=== PATIENT | male | born 1980 | race Caucasian/White ===

== ENCOUNTER 2021-06-07 09:57 | Emergency (ER) | payer MEDICAID, OTHER ==
[2021-06-07] MEDS ORDERED: Ondansetron 4 MG/2 ML SDV IVPUSH ONE (10:06)
[2021-06-07] MEDS ORDERED: Sodium Chloride 0.9% 1,000 ML IV ONE (10:06)
[2021-06-07] MEDS ORDERED: LORazepam 2 MG/ML SDV IVPUSH ONE ×3 (10:19→11:41)
[2021-06-07 11:01] LABS: BLOOD UREA NITROGEN,BUN 11 mg/dL (7.0-18.0); CARBON DIOXIDE,CO2 28.7 mmol/L (21.0-32.0); CHLORIDE,CL 102 mmol/L (98-107); GLUCOSE RANDOM 111 mg/dL (74-106); LIPASE 112 U/L (73-393); POTASSIUM,K 3.5 mmol/L (3.5-5.1); SODIUM,NA 141 mmol/L (136-148)
[2021-06-07] MEDS ORDERED: cloNIDine 0.1 MG Tab PO ONE (12:19)
--- NOTE | 2021-06-07 14:03 | PCM.EKG ---
#1 Interpretation EKG Interpretation Comments: EKG date June 07, 2021 at 11:06 AM. EKG: As interpreted by ER physician: Daaina: Nonspecific ST-T wave abnormalities Normal axis No evidence of ST elevation KS Normal sinus rhythm heart rate of 71
--- NOTE | 2021-06-07 14:29 | EDM.PDOC ---
ED HPI GENERAL MEDICAL PROBLEM - General Chief Complaint: Gastrointestinal Problem Stated Complaint: CANT HOLD ANYTHING DOWN FOR 1 WEEK Time Seen by Provider: 06/07/21 10:10 Source of Information: Reports: Patient History Limitations: Reports: No Limitations - History of Present Illness INITIAL COMMENTS - FREE TEXT/NARRATIVE: HISTORY AND PHYSICAL: History of present illness: Patient is a 40-year-old male who presents emergency room today with concern of episodes of vomiting over the past 5 to 7 days. Patient states he is a daily alcohol user and states that he typically will drink a entire large case of beer to himself daily. Patient states that he lives in [facility] and is up in [place] for a short visit. Patient states that he had stopped drinking in order to drive safely to [place] and states that [address], he began getting shaky and vomiting. Patient states he has continued to not drink but has continued to vomit daily since getting to [place]. Patient states that typically he does not stop drinking but is stopping for the next several weeks as he is here with his family. Patient states that he also has a history of hypertension and his blood pressure is always significantly elevated. Patient states he is on blood pressure medications and states that he does take these daily. Patient denies any other resuscitative symptoms. Patient denies fever, chills, chest pain, shortness of breath, or cough. Denies headache, neck stiff ness, change in vision, syncope, or near syncope. Denies abdominal pain, diarrhea, constipation, or dysuria. Has not noted any blood in urine or stool. Patient has been eating and drinking appropriately. Review of systems: As per history of present illness and below otherwise all systems reviewed and negative. Past medical history: As per history of present illness and as reviewed below otherwise noncontributory. Surgical history: As per history of present illness and as reviewed below otherwise noncontributory. Social history: See social history for further information Family history: As per history of present illness and as reviewed below otherwise noncontributory. Physical exam: General: Patient is alert, oriented, and in no acute distress. Patient sitting comfortably on exam table. Patient is hypertensive 186/108, otherwise vitally stable and reviewed by me. Patient is not actively vomiting on exam. HEENT: Atraumatic, normocephalic, pupils equal and reactive bilaterally, negative for conjunctival pallor or scleral icterus, mucous membranes moist, TMs normal bilaterally, throat clear, neck supple, nontender, trachea midline. No drooling or trismus noted. No meningeal signs. No hot potato voice noted. Lungs: Clear to auscultation, breath sounds equal bilaterally, chest nontender. Heart: S1S2, regular rate and rhythm without overt murmur Abdomen: Soft, nondistended, nontender. Negative for masses or hepatosplenomegaly. Negative for costovertebral tenderness. Pelvis: Stable nontender. Genitourinary: Deferred. Rectal: Deferred. Skin: Intact, warm, dry. No lesions or rashes noted. Extremities: Number noted with arm extended on exam. Otherwise, atraumatic, negative for cords or calf pain. Neurovascular unremarkable. Neuro: Awake, alert, oriented. Cranial nerves II through XII unremarkable. Cerebellum unremarkable. Motor and sensory unremarkable throughout. Exam nonfocal. Notes: Patient is a 40-year-old male, with a history of daily alcohol use, who presents emergency room today secondary to vomiting and shaking with possible alcohol withdrawal. Upon arrival to the ED, patient is hypertensive 186/108 otherwise is vitally stable and well-appearing on exam. Patient does have a tremor noticeable with arm extended on exam. Patient does not have any abdominal tenderness on exam. CIWA score upon arrival to the ED 10. Will provide 1LNS bolus, Zofran, Ativan 2mg, and reassess patient while awaiting diagnostic completion. See Dr. Ahmadi dictation for specific EKG interpretation. Otherwise, NSR without STEMI. CBC mild derangements are unremarkable. CMP shows mildly elevated alk phos of 123 in isolation, otherwise CMP is unremarkable. Lipase within normal limits. Urinalysis of clear. Alcohol is negative. After 2 mg of Ativan, patient does have slight improvement of his tremor but still remains hypertensive which is now increased to 254/148. Patient's heart rate remains within normal limits. Will provide an additional 2 of Ativan and reassess patient. After another 2 mg of Ativan, patient's tremor has completely resolved and patient is now comfortably sleeping at bedside but arousable and able to communicate appropriately. Patient's blood pressure is now 195/91. Patient does state he has significant hypertension and believes it to run around 170/100 but has not monitored it in sometime. Will provide 1 dose of Clonidine today in ED and reassess patient. Patient has had to contact consecutive CIWA scores that are 2 hours apart with less than 10 with resolution of tremor. Patient will be discharged with a tapered dose of lithium as he is going to continue to not drink for the next several weeks. Discussed close monitoring of his blood pressure at home and keeping a journal of his blood pressure readings twice daily and to establish an appointment with a primary care provider for blood pressure reassessment. Strict return precautions thoroughly discussed with patient. Signs and symptoms that were prompt return to the ED thoroughly discussed with patient. Voices understanding and is agreeable to plan of care. Denies any further questions or concerns at this time. Diagnostics: CBC, CMP, UA, lipase, EKG Therapeutics: Ativan, Zofran, normal saline, clonidine Prescription: Librium Impression: Alcohol withdrawal, mild Hypertension Plan: 1. Take medication as prescribed. I want you to closely monitor your blood pressure as discussed and keep a log of your blood pressure daily. 2. Follow-up with your primary care provider as discussed. Return to the ED as needed and as discussed. Definitive disposition and diagnosis as appropriate pending reevaluation and review of above. - Related Data Allergies Allergy/AdvReac Type Severity Reaction Status Date / Time No Known Allergies Allergy Verified 06/07/21 10:11 Past Medical History HEENT History: Reports: None Cardiovascular History: Reports: Heart Failure, Hypertension Respiratory History: Reports: None Gastrointestinal History: Reports: Irritable Bowel Syndrome Genitourinary History: Reports: Renal Calculus Musculoskeletal History: Reports: Arthritis Neurological History: Reports: None Psychiatric History: Reports: Depression Endocrine/Metabolic History: Reports: None Hematologic History: Reports: None Immunologic History: Reports: None Oncologic (Cancer) History: Reports: None Dermatologic History: Reports: None - Infectious Disease History Infectious Disease History: Reports: None - Past Surgical History Head Surgeries/Procedures: Reports: None HEENT Surgical History: Reports: None Cardiovascular Surgical History: Reports: None Respiratory Surgical History: Reports: None GI Surgical History: Reports: Cholecystectomy Male Surgical History: Reports: None Endocrine Surgical History: Reports: None Neurological Surgical History: Reports: None Musculoskeletal Surgical History: Reports: Amputation Oncologic Surgical History: Reports: None Dermatological Surgical History: Reports: None Social & Family History - Family History Family Medical History: No Pertinent Family History - Tobacco Use Tobacco Use Status *Q: Current Every Day Tobacco User Years of Tobacco use: 29 Packs/Tins Daily: 1 - Caffeine Use Caffeine Use: Reports: None - Alcohol Use Number of Drinks Per Day: 18 - Recreational Drug Use Recreational Drug Use: No ED ROS GENERAL - Review of Systems Review Of Systems: Comprehensive ROS is negative, except as noted in HPI. ED EXAM, GENERAL - Physical Exam Exam: See Below (see dictation) Course - Vital Signs Last Recorded V/S: Last Vital Signs Temp 97.8 F 06/07/21 10:09 Pulse 78 06/07/21 14:43 Resp 17 06/07/21 14:43 BP 135/75 06/07/21 14:43 Pulse Ox 98 06/07/21 14:43 - Orders/Labs/Meds Labs: Laboratory Tests 06/07/21 06/07/21 06/07/21 Range/Units 10:22 10:22 13:35 WBC 9.52 (4.0-11.0) K/uL RBC 5.45 (4.50-5.90) M/uL Hgb 15.3 (13.0-17.0) g/dL Hct 46.0 (38.0-50.0) % MCV 84.4 (80.0-98.0) fL MCH 28.1 (27.0-32.0) pg MCHC 33.3 (31.0-37.0) g/dL RDW Std Deviation 46.7 (28.0-62.0) fl RDW Coeff of Alysha 15 (11.0-15.0) % Plt Count 390 (150-400) K/uL MPV 10.40 (7.40-12.00) fL Neut % (Auto) 73.1 (48.0-80.0) % Lymph % (Auto) 17.8 (16.0-40.0) % Isabella % (Auto) 8.6 (0.0-15.0) % Eos % (Auto) 0.4 (0.0-7.0) % Baso % (Auto) 0.1 (0.0-1.5) % Neut # (Auto) 7.0 H (1.4-5.7) K/uL Lymph # (Auto) 1.7 (0.6-2.4) K/uL Isabella # (Auto) 0.8 (0.0-0.8) K/uL Eos # (Auto) 0.0 (0.0-0.7) K/uL Baso # (Auto) 0.0 (0.0-0.1) K/uL Nucleated RBC % 0.0 /100WBC Nucleated RBCs # 0 K/uL Sodium 141 (136-148) mmol/L Potassium 3.5 (3.5-5.1) mmol/L Chloride 102 (98-107) mmol/L Carbon Dioxide 28.7 (21.0-32.0) mmol/L BUN 11 (7.0-18.0) mg/dL Creatinine 1.0 (0.8-1.3) mg/dL Est Cr Clr Drug Dosing 95.95 mL/min Estimated GFR (MDRD) > 60.0 ml/min Glucose 111 H (74-106) mg/dL Calcium 9.1 (8.5-10.1) mg/dL Total Bilirubin 0.6 (0.2-1.0) mg/dL AST 17 (15-37) IU/L ALT 52 (14-63) IU/L Alkaline Phosphatase 123 H (46-116) U/L Total Protein 7.5 (6.4-8.2) g/dL Albumin 4.2 (3.4-5.0) g/dL Globulin 3.3 (2.6-4.0) g/dL Albumin/Globulin Ratio 1.3 (0.9-1.6) Lipase 112 (73-393) U/L Urine Color YELLOW Urine Appearance CLOUDY Urine pH 7.0 (5.0-8.0) Ur Specific [place] 1.015 (1.001-1.035) Urine Protein NEGATIVE (NEGATIVE) mg/dL Urine Glucose (UA) NEGATIVE (NEGATIVE) mg/dL Urine Ketones NEGATIVE (NEGATIVE) mg/dL Urine Occult Blood NEGATIVE (NEGATIVE) Urine Nitrite NEGATIVE (NEGATIVE) Urine Bilirubin NEGATIVE (NEGATIVE) Urine Urobilinogen 1.0 (<2.0) EU/dL Ur Leukocyte Esterase NEGATIVE (NEGATIVE) Ethyl Alcohol <3 mg/dL Meds: Medications Discontinued Medications Generic Name Dose Route Start Last Admin Trade Name Freq PRN Reason Stop Dose Admin Clonidine HCl 0.1 mg 06/07/21 12:19 06/07/21 12:25 Clonidine 0.1 Mg Tab PO 06/07/21 12:20 0.1 mg ONETIME ONE Administration Sodium Chloride 1,000 mls @ 999 mls/hr 06/07/21 10:06 06/07/21 10:26 Normal Saline IV 06/07/21 11:06 999 mls/hr BOLUS ONE Administration Lorazepam 2 mg 06/07/21 10:19 06/07/21 10:29 Lorazepam 2 Mg/Ml Sdv IVPUSH 06/07/21 10:20 2 mg ONETIME ONE Administration Lorazepam 2 mg 06/07/21 10:50 06/07/21 11:05 Lorazepam 2 Mg/Ml Sdv IVPUSH 06/07/21 10:51 2 mg ONETIME ONE Administration Lorazepam 1 mg 06/07/21 11:41 06/07/21 14:18 Lorazepam 2 Mg/Ml Sdv IVPUSH 06/07/21 11:42 Not Given ONETIME ONE Ondansetron HCl 4 mg 06/07/21 10:06 06/07/21 10:26 Ondansetron 4 Mg/2 Ml Sdv IVPUSH 06/07/21 10:07 4 mg ONETIME ONE Administration Departure - Departure Time of Disposition: 14:27 Disposition: Home, Self-Care 01 Clinical Impression: Alcohol withdrawal Qualifiers: Complication of substance-induced condition: with unspecified complication Qualified Code(s): F10.239 - Alcohol dependence with withdrawal, unspecified Hypertension Qualifiers: Hypertension type: unspecified Qualified Code(s): I10 - Essential (primary) hypertension - Discharge Information Instructions: Hypertension, Adult, [id number], Alcohol Withdrawal Syndrome, [id number] Referrals: PCP,None [Primary Care Provider] - Forms: ED Department Discharge Additional Instructions: The following information is given to patients seen in the emergency department who are being discharged to home. This information is to outline your options for follow-up care. We provide all patients seen in our emergency department with a follow-up referral. The need for follow-up, as well as the timing and circumstances, are variable depending upon the specifics of your emergency department visit. If you don't have a primary care physician on staff, we will provide you with a referral. We always advise you to contact your personal physician following an emergency department visit to inform them of the circumstance of the visit and for follow-up with them and/or the need for any referrals to a consulting specialist. The emergency department will also refer you to a specialist when appropriate. This referral assures that you have the opportunity for follow-up care with a specialist. All of these measure are taken in an effort to provide you with optimal care, which includes your follow-up. Under all circumstances we always encourage you to contact your private physician who remains a resource for coordinating your care. When calling for follow-up care, please make the office aware that this follow-up is from your recent emergency room visit. If for any reason you are refused follow-up, please contact the [facility] Emergency Department at and asked to speak to the emergency department charge nurse. [facility] [address] [place] [id number] [facility] [address] [place] [id number] 1. Take medication as prescribed. I want you to closely monitor your blood pressure as discussed and keep a log of your blood pressure daily. 2. Follow-up with your primary care provider as discussed. Return to the ED as needed and as discussed. Sepsis Event Note (ED) - Focused Exam Vital Signs: Vital Signs Temp Pulse Resp BP BP Pulse Ox 06/07/21 14:43 78 17 135/75 98 06/07/21 13:54 91 17 195/91 H 97 06/07/21 12:25 212/116 H 06/07/21 11:05 71 17 187/109 H 97 06/07/21 10:56 67 18 254/148 H 98 06/07/21 10:09 97.8 F 83 18 186/108 H 96
== END 2021-06-07 14:44 | disposition home or self-care (01) ==
LOC: MW.ED 09:57
DX: F10.239 Alcohol dependence with withdrawal, unspecified (principal); I11.0 Hypertensive heart disease with heart failure; Z72.0 Tobacco use; Y90.0 Blood alcohol level of less than 20 mg/100 ml
CPT/HCPCS: 36415; 80053; 80307; 81003; 83690; 85025; 93005; 96374; 96375; 96376; 99283; A9270; J2060; J2405; J7030

== ENCOUNTER 2021-06-10 11:50 | Emergency (ER) | payer MEDICAID, OTHER ==
[2021-06-10] MEDS ORDERED: Ondansetron 4 MG/2 ML SDV IVPUSH ONE (12:19)
[2021-06-10] MEDS ORDERED: Sodium Chloride 0.9% 1,000 ML IV ONE (12:19)
[2021-06-10] MEDS ORDERED: HYDROmorphone 1 MG/ML Syringe IVPUSH ONE (12:20)
[2021-06-10] MEDS ORDERED: Famotidine 20 MG/2 ML SDV IVPUSH ONE (12:21)
--- NOTE | 2021-06-10 12:24 | EDM.PDOC ---
ED HPI GENERAL MEDICAL PROBLEM - General Chief Complaint: Gastrointestinal Problem Stated Complaint: STOMACH PAIN, VOMMITTING Time Seen by Provider: 06/10/21 12:03 Source of Information: Reports: Patient History Limitations: Reports: No Limitations - History of Present Illness INITIAL COMMENTS - FREE TEXT/NARRATIVE: HISTORY AND PHYSICAL: History of present illness: Patient is a 40-year-old male who presents to the emergency room with complaints of nausea, vomiting, and upper abdominal pain. Patient was seen on 06/07/2021 for alcohol withdrawal symptoms (nausea, vomiting, tremors). Patient states he was a daily drinker, drinking a case of beer up until his arrival to [place] this week. He has generalized upper abdominal pain and tenderness to palpation. Not aggravated by food. States he has not been able to keep his hypertension medication down nor any liquid/food. Patient denies any fever, chills, headache, change in vision, syncope or near syncope. Denies any chest pain, back pain, shortness of breath or cough. Denies any diarrhea, constipation or dysuria. Has not noted any blood in urine or stool. Patient has been eating and drinking appropriately. Review of systems: As per history of present illness and below otherwise all systems reviewed and negative. Past medical history: As per history of present illness and as reviewed below otherwise no ncontributory. Surgical history: As per history of present illness and as reviewed below otherwise noncontributory. Social history: See social history for further information Family history: As per history of present illness and as reviewed below otherwise noncontributory. Physical exam: General: Well developed and well nourished. Alert and orientated x 3. Nontoxic in appearance and in no acute distress. Vital signs are stable and have been reviewed by me. Nursing notes were reviewed. HEENT: Atraumatic, normocephalic, pupils equal and reactive bilaterally, negative for conjunctival pallor or scleral icterus, mucous membranes moist, trachea midline. No drooling or trismus noted. No meningeal signs. No hot potato voice noted. Lungs: Clear to auscultation bilaterally. No wheezes, rales, or rhonchi. Chest nontender. Normal work of breathing, no accessory muscles used. Heart: S1S2, regular rate and rhythm without overt murmur, gallops, or rubs. No JVD. No peripheral edema Abdomen: Soft, nondistended, right upper quadrant and left upper quadrant tenderness to palpation. Normoactive bowel sounds. Negative for masses or costovertebral tenderness. Skin: Intact, warm, dry. No lesions or rashes noted. Hematologic: No petechiae or purpra. Mucosa appropriate color and normal nail bed color and refill. Extremities: Atraumatic, moves all extremities per self without difficulty or de ficits, negative for cords or calf pain. Normal variance of left forearm amputation. Neurovascular unremarkable. Neuro: Awake, alert, oriented. Cranial nerves II through XII unremarkable. Cerebellum unremarkable. Motor and sensory unremarkable throughout. Exam nonfocal. Psychiatric: Mood and affect are appropriate. Normal thought process. Answering questions appropriately. Notes: *This patient was seen and evaluated during the 2019 SARS-CoV-2 novel coronavirus pandemic period. Community viral transmission is ongoing at time of this encounter and the emergency department is operating under pandemic response procedures. Patient is a 40-year-old male who presents to the emergency room with complaints of nausea, vomiting and upper abdominal pain x 2 days. Patient states 2 weeks ago he had similar symptoms and was seen in the emergency room on 06/07/2021. After being evaluated he did feel well but symptoms returned 2 days ago. Patient contributed his symptoms to withdrawing from alcohol, stating he has not drank since his last ER visit. Due to patient being here the second time for this abdominal pain I will get a CT of the abdomen and pelvis. Lab work is unremarkable. No acute findings in the abdomen or pelvis. I have talked with the patient about today's findings, in addition to providing specific details for plan of care. He states he has not taken his Norvasc due to the nausea and vomiting. Tablet of Norvasc given here and blood pressure was monitored. Reassessment at the time of disposition demonstrates that the patient is in no acute distress. The patient is stable for discharge, counseling was provided and we discussed in great detail signs and symptoms that would prompt them to return to the Emergency Department. Medication, follow up and supportive care measures were reviewed and discussed. Voices understanding and is agreeable to plan of care. Denies any further questions or concerns at this time. Diagnostics: CBC, CMP, UA, CT abdomen and pelvis, lipase, EKG Therapeutics: IV fluid, Dilaudid, Zofran, Norvasc Prescription: None Impression: Abdominal pain Hypertension Plan: 1. You were evaluated today on an emergent basis. Your lab work and CT scan of the abdomen and pelvis are within normal limits. BRAT diet (bananas, rice, applesauce, toast) and advance as tolerated. Small frequent sips of fluids to prevent dehydration. Continue to abstain from alcohol use. 2. You can alternate Tylenol and ibuprofen as needed for pain and fever management. 3. We encourage you to follow up with your primary care provider and/or recommended specialist in the next few days for re-evaluation and further care/management. 4. If your symptoms should worsen, new symptoms develop or any of the signs and symptoms we discussed should arise please return to the emergency room or call 911 (if needed). Definitive disposition and diagnosis as appropriate pending reevaluation and review of above. - Related Data Allergies Allergy/AdvReac Type Severity Reaction Status Date / Time No Known Allergies Allergy Verified 06/10/21 12:15 Home Meds: Home Meds amLODIPine [Norvasc] 5 mg PO DAILY 06/10/21 [History] Past Medical History HEENT History: Reports: None Cardiovascular History: Reports: Heart Failure, Hypertension Respiratory History: Reports: None Gastrointestinal History: Reports: Irritable Bowel Syndrome Genitourinary History: Reports: Renal Calculus Musculoskeletal History: Reports: Arthritis Neurological History: Reports: None Psychiatric History: Reports: Depression Endocrine/Metabolic History: Reports: None Hematologic History: Reports: None Immunologic History: Reports: None Oncologic (Cancer) History: Reports: None Dermatologic History: Reports: None - Infectious Disease History Infectious Disease History: Reports: None - Past Surgical History Head Surgeries/Procedures: Reports: None HEENT Surgical History: Reports: None Cardiovascular Surgical History: Reports: None Respiratory Surgical History: Reports: None GI Surgical History: Reports: Cholecystectomy Male Surgical History: Reports: None Endocrine Surgical History: Reports: None Neurological Surgical History: Reports: None Musculoskeletal Surgical History: Reports: Amputation Oncologic Surgical History: Reports: None Dermatological Surgical History: Reports: None Social & Family History - Family History Family Medical History: No Pertinent Family History - Caffeine Use Caffeine Use: Reports: None ED ROS GENERAL - Review of Systems Review Of Systems: Comprehensive ROS is negative, except as noted in HPI. ED EXAM, GI/ABD - Physical Exam Exam: See Below (See dictation) Course - Vital Signs Last Recorded V/S: Last Vital Signs Temp 98.7 F 06/10/21 12:08 Pulse 89 06/10/21 14:28 Resp 19 06/10/21 14:28 BP 204/113 H 06/10/21 15:19 Pulse Ox 95 06/10/21 14:28 - Orders/Labs/Meds Orders: Active Orders 24 hr Category Date Time Status EKG Documentation Completion [RC] STAT Care 06/10/21 15:14 Active Labs: Laboratory Tests 06/10/21 06/10/21 06/10/21 Range/Units 13:01 13:01 13:21 WBC 10.56 (4.0-11.0) K/uL RBC 5.01 (4.50-5.90) M/uL Hgb 13.9 (13.0-17.0) g/dL Hct 42.8 (38.0-50.0) % MCV 85.4 (80.0-98.0) fL MCH 27.7 (27.0-32.0) pg MCHC 32.5 (31.0-37.0) g/dL RDW Std Deviation 47.1 (28.0-62.0) fl RDW Coeff of Alysha 15 (11.0-15.0) % Plt Count 339 (150-400) K/uL MPV 10.30 (7.40-12.00) fL Neut % (Auto) 81.8 H (48.0-80.0) % Lymph % (Auto) 11.5 L (16.0-40.0) % Stokes % (Auto) 6.3 (0.0-15.0) % Eos % (Auto) 0.2 (0.0-7.0) % Baso % (Auto) 0.2 (0.0-1.5) % Neut # (Auto) 8.6 H (1.4-5.7) K/uL Lymph # (Auto) 1.2 (0.6-2.4) K/uL Stokes # (Auto) 0.7 (0.0-0.8) K/uL Eos # (Auto) 0.0 (0.0-0.7) K/uL Baso # (Auto) 0.0 (0.0-0.1) K/uL Nucleated RBC % 0.0 /100WBC Nucleated RBCs # 0 K/uL Sodium 142 (136-148) mmol/L Potassium 3.7 (3.5-5.1) mmol/L Chloride 103 (98-107) mmol/L Carbon Dioxide 28.4 (21.0-32.0) mmol/L BUN 8 (7.0-18.0) mg/dL Creatinine 0.9 (0.8-1.3) mg/dL Est Cr Clr Drug Dosing 103.03 mL/min Estimated GFR (MDRD) > 60.0 ml/min Glucose 121 H (74-106) mg/dL Calcium 8.5 (8.5-10.1) mg/dL Magnesium 2.0 (1.8-2.4) mg/dL Total Bilirubin 0.5 (0.2-1.0) mg/dL AST 23 (15-37) IU/L ALT 45 (14-63) IU/L Alkaline Phosphatase 114 (46-116) U/L Total Protein 6.7 (6.4-8.2) g/dL Albumin 3.9 (3.4-5.0) g/dL Globulin 2.8 (2.6-4.0) g/dL Albumin/Globulin Ratio 1.4 (0.9-1.6) Lipase 100 (73-393) U/L Urine Color YELLOW Urine Appearance CLEAR Urine pH 8.0 (5.0-8.0) Ur Specific [place] 1.015 (1.001-1.035) Urine Protein NEGATIVE (NEGATIVE) mg/dL Urine Glucose (UA) NEGATIVE (NEGATIVE) mg/dL Urine Ketones NEGATIVE (NEGATIVE) mg/dL Urine Occult Blood NEGATIVE (NEGATIVE) Urine Nitrite NEGATIVE (NEGATIVE) Urine Bilirubin NEGATIVE (NEGATIVE) Urine Urobilinogen 0.2 (<2.0) EU/dL Ur Leukocyte Esterase NEGATIVE (NEGATIVE) Ethyl Alcohol < 3.0 mg/dL Meds: Medications Discontinued Medications Generic Name Dose Route Start Last Admin Trade Name Freq PRN Reason Stop Dose Admin Amlodipine Besylate 5 mg 06/10/21 15:07 06/10/21 15:19 Amlodipine 5 Mg Tab PO 06/10/21 15:08 5 mg ONETIME ONE Administration Famotidine 20 mg 06/10/21 12:21 06/10/21 13:07 Famotidine 20 Mg/2 Ml Sdv IVPUSH 08/15/21 12:22 20 mg ONETIME ONE Administration Hydromorphone HCl 1 mg 06/10/21 12:20 06/10/21 13:08 Hydromorphone 1 Mg/Ml Syringe IVPUSH 06/10/21 12:21 1 mg ONETIME ONE Administration Sodium Chloride 1,000 mls @ 999 mls/hr 06/10/21 12:19 06/10/21 13:08 Normal Saline IV 06/10/21 13:19 999 mls/hr STAT ONE Administration Iopamidol 100 ml 06/10/21 14:17 06/10/21 14:18 Iopamidol 755 Mg/Ml 500 Ml Multipack Bottle IVPUSH 06/10/21 14:18 100 ml ONETIME ONE Administration Ondansetron HCl 4 mg 06/10/21 12:19 06/10/21 13:07 Ondansetron 4 Mg/2 Ml Sdv IVPUSH 06/10/21 12:20 4 mg ONETIME ONE Administration Departure - Departure Time of Disposition: 16:45 Disposition: Home, Self-Care 01 Clinical Impression: Abdominal pain Qualifiers: Abdominal location: upper abdomen, unspecified Qualified Code(s): R10.10 - Upper abdominal pain, unspecified Hypertension Qualifiers: Hypertension type: unspecified Qualified Code(s): I10 - Essential (primary) hypertension - Discharge Information Instructions: Abdominal Pain, Adult, [id number] Referrals: PCP,None [Primary Care Provider] - Forms: ED Department Discharge Additional Instructions: The following information is given to patients seen in the emergency department who are being discharged to home. This information is to outline your options for follow-up care. We provide all patients seen in our emergency department with a follow-up referral. The need for follow-up, as well as the timing and circumstances, are variable depending upon the specifics of your emergency department visit. If you don't have a primary care physician on staff, we will provide you with a referral. We always advise you to contact your personal physician following an emergency department visit to inform them of the circumstance of the visit and for follow-up with them and/or the need for any referrals to a consulting speci alist. The emergency department will also refer you to a specialist when appropriate. This referral assures that you have the opportunity for follow-up care with a specialist. All of these measure are taken in an effort to provide you with optimal care, which includes your follow-up. Under all circumstances we always encourage you to contact your private physician who remains a resource for coordinating your care. When calling for follow-up care, please make the office aware that this follow-up is from your recent emergency room visit. If for any reason you are refused follow-up, please contact the [facility] Emergency Department at and asked to speak to the emergency department charge nurse. [facility] [address] [place] [id number] [id number] Thank you for choosing the [facility] emergency department in [place] for your medical needs today. It was a pleasure caring for you. Today you were seen in the emergency department for abdominal pain 1. You were evaluated today on an emergent basis. Your lab work and CT scan of the abdomen and pelvis are within normal limits. BRAT diet (bananas, rice, applesauce, toast) and advance as tolerated. Small frequent sips of fluids to prevent dehydration. Continue to abstain from alcohol use. 2. You can alternate Tylenol and ibuprofen as needed for pain and fever management. 3. We encourage you to follow up with your primary care provider and/or recommended specialist in the next few days for re-evaluation and further care/management. 4. If your symptoms should worsen, new symptoms develop or any of the signs and symptoms we discussed should arise please return to the emergency room or call 911 (if needed). Sepsis Event Note (ED) - Focused Exam Vital Signs: Vital Signs Temp Pulse Resp BP BP Pulse Ox 06/10/21 15:19 204/113 H 06/10/21 14:28 89 19 168/138 H 95 06/10/21 13:08 89 18 227/136 H 96 06/10/21 12:08 98.7 F 73 19 255/123 H 91 L - My Orders Last 24 Hours: My Active Orders 06/10/21 15:14 EKG Documentation Completion [RC] STAT - Assessment/Plan Last 24 Hours: My Active Orders 06/10/21 15:14 EKG Documentation Completion [RC] STAT
[2021-06-10 13:30] LABS: BLOOD UREA NITROGEN,BUN 8 mg/dL (7.0-18.0); CARBON DIOXIDE,CO2 28.4 mmol/L (21.0-32.0); CHLORIDE,CL 103 mmol/L (98-107); GLUCOSE RANDOM 121 mg/dL (74-106); LIPASE 100 U/L (73-393); POTASSIUM,K 3.7 mmol/L (3.5-5.1); SODIUM,NA 142 mmol/L (136-148)
[2021-06-10] MEDS ORDERED: Iopamidol 755 MG/ML 500 ML Multipack Bottle IVPUSH ONE (14:17)
--- NOTE | 2021-06-10 15:01 | CT ---
Indication: Epigastric pain Technique: Contrast enhanced CT abdomen and pelvis. Comparison: No comparison Findings: Heart size is normal. Lung bases are clear Liver pancreas spleen adrenal glands are unremarkable cholecystectomy no abdominal aortic aneurysm. Symmetric enhancement of both kidneys. Tiny too small to characterize low-density lesion in the right kidney Urinary bladder unremarkable. Appendix not seen no pericecal inflammatory change. The bowel appears unremarkable. No suspicious bony lesions. Impression: No acute findings in the abdomen or pelvis. Please note that all CT scans at this facility use dose modulation, iterative reconstruction, and/or weight-based dosing when appropriate to reduce radiation dose to as low as reasonably achievable. Dictated by Vandana Bowers MD @ 06/10/2021 3:00:[address] Vandana Bowers @ Jun 10 2021 3:00PM
[2021-06-10] MEDS ORDERED: amLODIPine 5 MG Tab PO ONE (15:07)
--- NOTE | 2021-06-10 15:52 | PCM.EKG ---
#1 Interpretation EKG Date: 06/10/21 Time: 15:20 Rhythm: NSR Rate (Beats/Min): 69 [place]: Normal P-Wave: Present QRS: Normal ST-T: Normal QT: Normal Comparison: No Change (06/07/21) EKG Interpretation Comments: Sinus Rhythm
== END 2021-06-10 15:42 | disposition home or self-care (01) ==
LOC: MW.ED 11:50
DX: R10.11 Right upper quadrant pain (principal); R10.812 Left upper quadrant abdominal tenderness; I11.0 Hypertensive heart disease with heart failure; I50.9 Heart failure, unspecified
CPT/HCPCS: 74177; 80053; 80307; 81003; 83690; 83735; 85025; 93005; 96374; 96375; 99284; A9270; J1170; J2405; J3490; J7030; Q9967; 93010

== ENCOUNTER 2021-12-20 10:59 | Emergency (ER) | payer MEDICAID, OTHER ==
[2021-12-20] MEDS ORDERED: Meclizine 25 MG Tab PO ONE (11:10)
[2021-12-20] MEDS ORDERED: Sodium Chloride 0.9% 1,000 ML IV ONE (11:10)
[2021-12-20 12:35] LABS: BLOOD UREA NITROGEN,BUN 8 mg/dL (7.0-18.0); CARBON DIOXIDE,CO2 25.3 mmol/L (21.0-32.0); CHLORIDE,CL 103 mmol/L (98-107); GLUCOSE RANDOM 104 mg/dL (74-106); POTASSIUM,K 3.6 mmol/L (3.5-5.1); SODIUM,NA 141 mmol/L (136-148)
[2021-12-20 12:37] LABS: CORONAVIRUS COVID-19 NAA NEGATIVE (NEGATIVE); INFLUENZA A NAA NEGATIVE (NEGATIVE); INFLUENZA B NAA NEGATIVE (NEGATIVE)
== END 2021-12-20 12:49 | disposition home or self-care (01) ==
LOC: MW.ED 10:59
DX: R42 Dizziness and giddiness (principal); I11.0 Hypertensive heart disease with heart failure; I50.9 Heart failure, unspecified; E11.9 Type 2 diabetes mellitus without complications; Z79.899 Other long term (current) drug therapy; Z20.822 Contact with and (suspected) exposure to COVID-19
CPT/HCPCS: 0240U; 36415; 70450; 71045; 80053; 84484; 85025; 93005; 99284; A9270; J7030

== ENCOUNTER 2021-12-29 08:39 | Emergency (ER) | payer MEDICAID ==
[2021-12-29] MEDS ORDERED: Sodium Chloride 0.9% 2.5 ML Syringe FLUSH PRN (09:09)
[2021-12-29] MEDS ORDERED: Sodium Chloride 0.9% 1,000 ML IV ONE (09:09)
[2021-12-29] MEDS ORDERED: Sodium Chloride 0.9% 10 ML Syringe FLUSH PRN (09:09)
[2021-12-29] MEDS ORDERED: Pantoprazole 80 MG in Sodium Chloride 0.9% 10 ML IVPUSH ONE (09:10)
[2021-12-29 09:49] LABS: BLOOD UREA NITROGEN,BUN 9 mg/dL (7.0-18.0); CARBON DIOXIDE,CO2 25.9 mmol/L (21.0-32.0); CHLORIDE,CL 101 mmol/L (98-107); GLUCOSE RANDOM 383 mg/dL (74-106); LIPASE 135 U/L (73-393); POTASSIUM,K 3.6 mmol/L (3.5-5.1); SODIUM,NA 137 mmol/L (136-148)
== END 2021-12-29 11:28 | disposition home or self-care (01) ==
LOC: MW.ED 08:39
DX: K92.2 Gastrointestinal hemorrhage, unspecified (principal); K92.0 Hematemesis; I11.0 Hypertensive heart disease with heart failure; I50.9 Heart failure, unspecified; F32.9 Major depressive disorder, single episode, unspecified; E11.9 Type 2 diabetes mellitus without complications; Z79.899 Other long term (current) drug therapy
CPT/HCPCS: 36415; 74176; 80053; 80307; 81003; 83690; 83735; 85025; 85610; 85730; 93005; 96374; 99285; C9113; J7030

== ENCOUNTER 2022-01-13 16:47 | Emergency (ER) | payer MEDICAID ==
[2022-01-13] MEDS ORDERED: Sodium Chloride 0.9% 10 ML Syringe FLUSH PRN (16:59)
[2022-01-13] MEDS ORDERED: Sodium Chloride 0.9% 2.5 ML Syringe FLUSH PRN (16:59)
[2022-01-13] MEDS ORDERED: Ondansetron 4 MG/2 ML SDV IVPUSH ONE (17:09)
[2022-01-13] MEDS ORDERED: Morphine 4 MG/ML VIAL IVPUSH ONE ×3 (17:09→21:35)
[2022-01-13 17:35] LABS: BLOOD UREA NITROGEN,BUN 12 mg/dL (7.0-18.0); CHLORIDE,CL 102 mmol/L (98-107); GLUCOSE RANDOM 171 mg/dL (74-106); LIPASE 186 U/L (73-393); POTASSIUM,K 3.3 mmol/L (3.5-5.1); SODIUM,NA 140 mmol/L (136-148)
[2022-01-13 18:12] LABS: CORONAVIRUS COVID-19 NAA NEGATIVE (NEGATIVE); INFLUENZA A NAA NEGATIVE (NEGATIVE); INFLUENZA B NAA NEGATIVE (NEGATIVE)
[2022-01-13] MEDS ORDERED: Potassium Chloride 20 MEQ Tab.ER PO ONE (23:02)
== END 2022-01-13 23:10 | disposition home or self-care (01) ==
LOC: MW.ED 16:47
DX: R07.89 Other chest pain (principal); E87.6 Hypokalemia; I11.0 Hypertensive heart disease with heart failure; I50.9 Heart failure, unspecified; E11.9 Type 2 diabetes mellitus without complications; Z79.899 Other long term (current) drug therapy; Z79.84 Long term (current) use of oral hypoglycemic drugs; Z20.822 Contact with and (suspected) exposure to COVID-19
CPT/HCPCS: 0240U; 36415; 71275; 74174; 80053; 81003; 83690; 84484; 85025; 93005; 96374; 96375; 96376; 99285; A9270; J2270; J2405

== ENCOUNTER 2022-01-26 22:15 | Emergency (ER) | payer MEDICAID ==
[2022-01-26] MEDS ORDERED: Sodium Chloride 0.9% 2.5 ML Syringe FLUSH PRN (22:45)
[2022-01-26] MEDS ORDERED: Sodium Chloride 0.9% 10 ML Syringe FLUSH PRN (22:45)
[2022-01-26] MEDS ORDERED: Sodium Chloride 0.9% 1,000 ML IV ONE (22:45)
[2022-01-26] MEDS ORDERED: Ondansetron 4 MG/2 ML SDV IVPUSH ONE (23:11)
[2022-01-26] MEDS ORDERED: Ketorolac 30 MG/ML SDV IVPUSH ONE (23:12)
[2022-01-26] MEDS ORDERED: fentaNYL 50 MCG/ML SDV IVPUSH ONE (23:12)
[2022-01-26 23:27] LABS: BLOOD UREA NITROGEN,BUN 12 mg/dL (7.0-18.0); CARBON DIOXIDE,CO2 25.2 mmol/L (21.0-32.0); CHLORIDE,CL 102 mmol/L (98-107); GLUCOSE RANDOM 147 mg/dL (74-106); POTASSIUM,K 3.4 mmol/L (3.5-5.1); SODIUM,NA 136 mmol/L (136-148)
== END 2022-01-27 00:45 | disposition home or self-care (01) ==
LOC: MW.ED 22:15
DX: K29.70 Gastritis, unspecified, without bleeding (principal); R19.7 Diarrhea, unspecified; I10 Essential (primary) hypertension; E78.00 Pure hypercholesterolemia, unspecified; K21.9 Gastro-esophageal reflux disease without esophagitis; E11.9 Type 2 diabetes mellitus without complications; E66.9 Obesity, unspecified; Z68.30 Body mass index [BMI] 30.0-30.9, adult; Z79.899 Other long term (current) drug therapy
CPT/HCPCS: 36415; 74176; 80053; 83690; 83735; 85025; 96374; 96375; 99284; J1885; J2405; J3010; J3490; J7030; 99283

== ENCOUNTER 2022-04-03 14:55 | Emergency (ER) | payer MEDICAID ==
[2022-04-03] MEDS ORDERED: Sodium Chloride 0.9% 2.5 ML Syringe FLUSH PRN (15:11)
[2022-04-03] MEDS ORDERED: Sodium Chloride 0.9% 1,000 ML IV ONE (15:11)
[2022-04-03] MEDS ORDERED: Sodium Chloride 0.9% 10 ML Syringe FLUSH PRN (15:11)
[2022-04-03 16:44] LABS: BLOOD UREA NITROGEN,BUN 12 mg/dL (7.0-18.0); CARBON DIOXIDE,CO2 27.3 mmol/L (21.0-32.0); CHLORIDE,CL 101 mmol/L (98-107); GLUCOSE RANDOM 294 mg/dL (74-106); LIPASE 164 U/L (73-393); POTASSIUM,K 3.5 mmol/L (3.5-5.1); SODIUM,NA 134 mmol/L (136-148)
== END 2022-04-03 17:31 | disposition home or self-care (01) ==
LOC: MW.ED 14:55
DX: E11.65 Type 2 diabetes mellitus with hyperglycemia (principal); E78.00 Pure hypercholesterolemia, unspecified; I10 Essential (primary) hypertension; K21.9 Gastro-esophageal reflux disease without esophagitis; F17.210 Nicotine dependence, cigarettes, uncomplicated; E66.9 Obesity, unspecified; Z68.42 Body mass index [BMI] 45.0-49.9, adult
CPT/HCPCS: 36415; 80053; 82009; 82803; 83690; 85025; 96360; 99284; J3490; J7030

== ENCOUNTER 2022-04-24 20:01 | Emergency (ER) | payer MEDICAID | END 2022-04-24 21:31 | disposition home or self-care (01) | LOC: MW.ED 20:01 | DX: Z20.822 Contact with and (suspected) exposure to COVID-19 (principal); E11.9 Type 2 diabetes mellitus without complications; E66.9 Obesity, unspecified; Z79.84 Long term (current) use of oral hypoglycemic drugs; Z68.42 Body mass index [BMI] 45.0-49.9, adult | CPT/HCPCS: 99284; U0002 ==

== ENCOUNTER 2022-04-27 09:26 | Emergency (ER) | payer MEDICAID | END 2022-04-27 11:21 | disposition home or self-care (01) | LOC: MW.ED 09:26 | DX: Z00.00 Encounter for general adult medical examination without abnormal findings (principal); Z20.822 Contact with and (suspected) exposure to COVID-19; E11.9 Type 2 diabetes mellitus without complications; F17.210 Nicotine dependence, cigarettes, uncomplicated; E66.9 Obesity, unspecified | CPT/HCPCS: 87070; 87880-QW; 99282; 99284; U0002 ==

== ENCOUNTER 2022-04-29 09:25 | Emergency (ER) | payer MEDICAID ==
[2022-04-29 10:28] LABS: CARBON DIOXIDE,CO2 26.5 mmol/L (21.0-32.0); POTASSIUM,K 3.1 mmol/L (3.5-5.1)
[2022-04-29 10:33] LABS: CORONAVIRUS COVID-19 NAA POSITIVE (NEGATIVE); INFLUENZA A NAA NEGATIVE (NEGATIVE); INFLUENZA B NAA NEGATIVE (NEGATIVE)
[2022-04-29] MEDS ORDERED: Potassium Chloride 20 MEQ Tab.ER PO ONE (10:37)
== END 2022-04-29 10:54 | disposition home or self-care (01) ==
LOC: MW.ED 09:25
DX: U07.1 COVID-19 (principal); E78.00 Pure hypercholesterolemia, unspecified; I10 Essential (primary) hypertension; E11.9 Type 2 diabetes mellitus without complications; E66.9 Obesity, unspecified; Z68.42 Body mass index [BMI] 45.0-49.9, adult; Z79.899 Other long term (current) drug therapy
CPT/HCPCS: 0240U; 36415; 71045; 80053; 85025; 99284; A9270

== ENCOUNTER 2022-05-07 22:32 | Emergency (ER) | payer MEDICAID ==
[2022-05-08] MEDS ORDERED: Sulfamethoxazole/Trimethoprim 800-160 MG Tab PO ONE (00:20)
[2022-05-08] MEDS ORDERED: Cephalexin 500 MG Cap PO ONE (00:20)
== END 2022-05-08 00:36 | disposition home or self-care (01) ==
LOC: MW.ED 22:32
DX: L03.115 Cellulitis of right lower limb (principal); I10 Essential (primary) hypertension; E11.9 Type 2 diabetes mellitus without complications; E66.9 Obesity, unspecified; Z68.42 Body mass index [BMI] 45.0-49.9, adult; Z79.899 Other long term (current) drug therapy; Z79.84 Long term (current) use of oral hypoglycemic drugs; Z90.49 Acquired absence of other specified parts of digestive tract
CPT/HCPCS: 82947; 93005; 99283; A9270

== ENCOUNTER 2024-07-14 14:24 | Emergency (ER) | payer SELFPAY | END 2024-07-14 15:07 | disposition home or self-care (01) | LOC: MW.ED 14:24 | DX: L03.316 Cellulitis of umbilicus (principal); I10 Essential (primary) hypertension; E11.9 Type 2 diabetes mellitus without complications; E66.9 Obesity, unspecified; F17.210 Nicotine dependence, cigarettes, uncomplicated; Z86.16 Personal history of COVID-19; Z90.49 Acquired absence of other specified parts of digestive tract; Z79.82 Long term (current) use of aspirin; Z79.84 Long term (current) use of oral hypoglycemic drugs; Z79.899 Other long term (current) drug therapy; Z75.8 Other problems related to medical facilities and other health care; Z68.33 Body mass index [BMI] 33.0-33.9, adult | CPT/HCPCS: 99283 ==